=== PATIENT | female | born 1985 | race Caucasian/White ===

== ENCOUNTER 2018-03-18 10:47 | Emergency (ER) | payer SELFPAY ==
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
[2018-03-18] MEDS ORDERED: HYDROCODONE/ACETAMINOPHEN 5-325 MG (6 TAB/ER DISP) PO PRN (12:16)
[2018-03-18 12:29] VITALS: BP 113/57
== END 2018-03-18 12:31 | disposition home or self-care (01) ==
LOC: ER 10:47
DX: S82.001D Unspecified fracture of right patella, subsequent encounter for closed fracture with routine healing (principal); M25.561 Pain in right knee; X58.XXXD Exposure to other specified factors, subsequent encounter
CPT/HCPCS: 99283